=== PATIENT | female | born 1960 | race Caucasian/White ===

== ENCOUNTER 2024-07-30 19:47 | Emergency (ER) | payer BC, MEDICARE, SELFPAY ==
[2024-07-30] VITALS (12 sets, daily range): BP systolic 144–165; BP diastolic 87–92; PULSE 65–78; TEMP 36.6; O2SAT 97–99; BMI 25.8
--- NOTE | 2024-07-30 20:00 | ECG_ITS ---
[facility] Test Date: 2024-07-30 Pat Name: JASON BAEZA Department: Room: - Gender: Female Product Development: : 1960 Requested By: [id number] Order Number: [id number] Reading MD: FLORIN NORTON M.D. Measurements Intervals [place] Rate: 67 P: 47 VA: 142 QRS: 9 QRSD: 100 T: 63 QT: 400 QTc: 415 Interpretive Statements 1100 Sinus rhythm 2440 Incomplete right bundle branch block 9130 borderline ECG Compared to ECG 07/28/2020 15:13:17 No significant change Electronically Signed On 07-31-2024 7:43:38 EDT by FLORIN NORTON M.D.
--- NOTE | 2024-07-30 20:15 | ED_ITS ---
HPI - Chest Pain General Chief Complaint: Chest Pain Stated Complaint: FEELING SHAKEY Time Seen by Provider: 07/30/24 20:00 Source: patient Mode of arrival: walk-in Limitations: no limitations History of Present Illness HPI narrative: This 64-year-old female presents for evaluation of an episode of chest pain that radiated into both shoulders upon awakening earlier today. She admits that she has been doing some heavy lifting recently but did not do any heavy lifting today. She states she woke up with the discomfort and it lasted until around noon. It resolved and has not come back. She denies any shortness of breath dizziness or diaphoresis associated with it. She has not had any nausea vomiting or diarrhea. She has no lower extremity pain or swelling. No medications were taken prior to arrival. She does not smoke. She is not diabetic. She does not have a history of hypertension. She has a strong family history of heart disease but no personal history of heart disease. Related Data Home Medications ?Medication ?Instructions ?Recorded ?Confirmed [id number]-[id number] 1 tab PO Q6H PRN headache 07/30/24 07/30/24 50 mg-325 mg-40 mg tablet (Esgic) latanoprost 0.005 % eye drops 1 drp ophthalmic (eye) .qhs 07/30/24 07/30/24 levothyroxine 100 mcg tablet 100 mcg PO QAM 07/30/24 07/30/24 naproxen 500 mg tablet 500 mg PO Q12H PRN pain 07/30/24 07/30/24 Allergies Allergy/AdvReac Type Severity Reaction Status Date / Time Penicillins Allergy Hives Verified 07/30/24 19:53 Review of Systems ROS Status of ROS 10 or more systems reviewed and unremark able except as noted in history and below PFSH PFSH Social History Little interest or pleasure in doing things: not at all Feeling down, depressed, or hopeless: not at all Exam Narrative Exam Narrative: Vital signs and Nursing Notes reviewed: Patient is afebrile with a normal pulse, blood pressure is elevated 165/90, she is not hypoxic with pulse ox of 99% on room air General: Awake, alert, oriented, no acute distress, lying comfortably on the stretcher HEENT: Normocephalic atraumatic, mucous membranes are moist and pink, eyes are clear, normal conjunctiva, vision is grossly intact, posterior pharynx is normal in appearance. Neck: Supple Chest: Lungs are clear to auscultation with good air entry, there is no wheezing rhonchi or rales appreciated no accessory muscle use, patient is speaking in complete sentences-no chest wall tenderness to palpation CVS: Regular rate and rhythm S1-S2, no murmurs rubs or gallops, pulses are brisk and equal bilaterally ABD: Soft, nondistended, nontender, no rebound guarding or rigidity, bowel sounds are normal, no pulsatile masses appreciated Extremities: Moving all extremities, no lower extremity tenderness or swelling noted, negative Homans' sign, pulses are brisk and equal bilaterally Skin: Normal in appearance without rash,pallor, petechiae or purpura Neuro: No focal deficits Constitutional Vital Signs, click to edit/add: Last Vital Signs Temp 97.8 F 07/30/24 19:53 Pulse 70 07/30/24 19:53 Resp 20 07/30/24 19:53 BP 165/90 H 07/30/24 19:53 Pulse Ox 99 07/30/24 19:53 O2 Del Method Room Air 07/30/24 19:53 Course Vital Signs Vital signs: Vital Signs Temperature 97.8 F 07/30/24 19:53 Pulse Rate 70 07/30/24 19:53 Respiratory Rate 20 07/30/24 19:53 Blood Pressure 165/90 H 07/30/24 19:53 Pulse Oximetry 99 07/30/24 19:53 Oxygen Delivery Method Room Air 07/30/24 19:53 Temperature 97.8 F 07/30/24 19:53 Pulse Rate 70 07/30/24 19:53 Respiratory Rate 20 07/30/24 19:53 Blood Pressure 165/90 H 07/30/24 19:53 Pulse Oximetry 99 07/30/24 19:53 Oxygen Delivery Method Room Air 07/30/24 19:53 MDM - Chest Pain MDM Narrative Medical decision making narrative: This 64-year-old female, non-smoker who is not overweight or has a history of diabetes, heart disease or hypertension presents for evaluation of midsternal chest pain that radiated into both shoulders upon awakening this morning. She admits that she has been doing some heavy lifting at home. Her pain resolved during the day. Upon arrival she was not having any pain but was concerned about the pain she had earlier in the day. She denies any associated shortness of breath dizziness or diaphoresis. She has no nausea or vomiting. She has no abdominal pain. Her physical exam was benign. Her blood pressure was mildly elevated. EKG was a sinus rhythm with an incomplete right bundle branch block at 67 bpm. She was medicated with 324 mg baby aspirin and the cardiac workup was ordered. She has a normal white count and hemoglobin. Electrolytes are normal. Troponin and D-dimer are both normal. 1 view chest x-ray was ordered after the D-dimer came back normal and was reviewed by myself and does not show any acute findings. She has a normal mediastinum, no acute pulmonary infiltrate and normal cardiac borders. The results of her labs EKG and x-ray were discussed with her and she feels comfortable being discharged home at this time. I suggested that she follow-up closely with her family physician as he may want to order a stress test for her but at this time she is stable for discharge. Lab Data Labs: Lab Results 07/30/24 Range/Units 20:16 WBC 5.6 (4.0-11.0) 10^3/uL RBC 4.36 (4.20-5.40) 10^6/uL Hgb 13.4 (12.0-16.0) g/dL Hct 39.8 (36.0-48.0) % MCV 91.3 (81.0-99.0) fL MCH 30.7 (26.7-34.0) pg MCHC 33.7 (29.9-35.2) g/dL RDW 12.8 (11.0-15.0) % Plt Count 213 (150-450) 10^3/uL MPV 10.3 (9.5-13.5) fL Neut % (Auto) 45.1 (43.0-75.0) % Lymph % (Auto) 45.0 (20.5-60.0) % [place] % (Auto) 5.4 (1.7-12.0) % Eos % (Auto) 2.9 (0.9-7.0) % Baso % (Auto) 0.9 (0.2-2.0) % Neut # (Auto) 2.5 (1.4-6.5) 10^3/uL Lymph # (Auto) 2.5 (1.2-3.8) 10^3/uL [place] # (Auto) 0.3 (0.3-0.8) 10^3/uL Eos # (Auto) 0.2 (0.0-0.7) 10^3/uL Baso # (Auto) 0.1 (0.0-0.1) 10^3/uL Abs Immat Gran (auto) 0.04 H (0.00-0.03) 10^3/uL Imm/Tot Granulo (auto) 0.7 H (0.0-0.5) % D-Dimer 0.31 (<=0.59) mg/L FEU Sodium 141 (136-145) mmol/L Potassium 3.5 (3.5-5.1) mmol/L Chloride 106 (98-107) mmol/L Carbon Dioxide 27.6 (21.0-32.0) mmol/L Anion Gap 10.9 BUN 16.0 (7.0-18.0) mg/dL Creatinine 0.79 (0.55-1.02) mg/dL Est GFR ( Amer) >60 (>=60 mL/min/1.73m^2) Est GFR (Non-Af Amer) >60 (>=60 mL/min/1.73m^2) BUN/Creatinine Ratio 20.3 Glucose 114 H (74-106) mg/dL Calcium 8.7 (8.5-10.1) mg/dL Total Bilirubin 0.2 (0.2-1.0) mg/dL AST 17 (15-37) U/L ALT 26 (14-59) U/L Alkaline Phosphatase 126 H (46-116) U/L Troponin I High Sens 6.9 (4.0-51.3) pg/mL NT-Pro-B Natriuret Pep 53.0 (<=900.0) pg/mL Total Protein 6.6 (6.4-8.2) g/dL Albumin 3.5 (3.4-5.0) g/dL Globulin 3.1 g/dL Albumin/Globulin Ratio 1.1 ECG Data Attestation: I personally reviewed and interpreted this ECG as follows: (Sinus rhythm at 67 bpm, incomplete right bundle branch block, normal axis, normal intervals, no acute ST segment elevation or T wave inversion) Heart Score History: Moderately Suspicious ECG: Normal Age: >45-<65 years Risk Factors: No Risk Factors Troponin: <Normal Limit Total Heart Score Recommendations & Risks:: 2 Discharge Plan Discharge Chief Complaint: Chest Pain Clinical Impression: Atypical chest pain Patient Disposition: Home, Self-Care Time of Disposition Decision: 21:22 Condition: Good Prescriptions / Home Meds: No Action latanoprost 0.005 % drops 1 drp OPHTHALMIC (EYE) .qhs levothyroxine 100 mcg tablet 100 mcg PO QAM naproxen 500 mg tablet 500 mg PO Q12H PRN (Reason: pain) [id number]-[id number] [Esgic] 50-325-40 mg tablet 1 tab PO Q6H PRN (Reason: headache) Print Language: Macedonian Instructions: Chest Pain (ED), Noncardiac Chest Pain (ED) Referrals: ENEDELIA LANDIS [Primary Care Provider] - 1 week
[2024-07-30] MEDS: ASPIRIN 81 MG TAB.CHEW 324 MG PO (20:17)
--- NOTE | 2024-07-30 20:25 | PC.NURSE ---
Patient states she had chest pain earlier today that is now resolved. 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 She feels like she is anxious, that it waas caused by her having chest pain earlier then thinking about all of the things it could be causing the pain.
[2024-07-30 20:26] LABS: Basophils Absolute Auto 0.1 10^3/uL (0.0-0.1); Basophils Percent Auto 0.9 % (0.2-2.0); Eosinophils Absolute Auto 0.2 10^3/uL (0.0-0.7); Eosinophils Percent Auto 2.9 % (0.9-7.0); Hematocrit 39.8 % (36.0-48.0); Hemoglobin 13.4 g/dL (12.0-16.0); Immature Granulocytes Abs Auto 0.04 10^3/uL (0.00-0.03); Immature Granulocytes Pct Auto 0.7 % (0.0-0.5); Lymphocytes Absolute Auto 2.5 10^3/uL (1.2-3.8); Mean Corpuscular HGB Conc 33.7 g/dL (29.9-35.2); Mean Corpuscular Hemoglobin 30.7 pg (26.7-34.0); Mean Corpuscular Volume 91.3 fL (81.0-99.0); Mean Platelet Volume 10.3 fL (9.5-13.5); Monocytes Absolute Auto 0.3 10^3/uL (0.3-0.8); Monocytes Percent Auto 5.4 % (1.7-12.0); Neutrophils Absolute Auto 2.5 10^3/uL (1.4-6.5); Neutrophils Percent Auto 45.1 % (43.0-75.0); Platelet Count 213 10^3/uL (150-450); Red Blood Count 4.36 10^6/uL (4.20-5.40); Red Cell Distribution Width 12.8 % (11.0-15.0); White Blood Count 5.6 10^3/uL (4.0-11.0)
[2024-07-30 20:38] LABS: D Dimer 0.31 mg/L FEU (<=0.59)
[2024-07-30 20:44] LABS: Alanine Aminotransferase 26 U/L (14-59); Albumin Globulin Ratio 1.1; Albumin Level 3.5 g/dL (3.4-5.0); Alkaline Phosphatase 126 U/L (46-116); Anion Gap 10.9; Aspartate Amino Transferase 17 U/L (15-37); BUN Creatinine Ratio 20.3; Bilirubin Total 0.2 mg/dL (0.2-1.0); Calcium 8.7 mg/dL (8.5-10.1); Carbon Dioxide 27.6 mmol/L (21.0-32.0); Chloride 106 mmol/L (98-107); Estimated GFR (African America >60 (>=60 mL/min/1.73m^2); Estimated GFR (Non-African Ame >60 (>=60 mL/min/1.73m^2); Globulin 3.1 g/dL; Glucose 114 mg/dL (74-106); Potassium 3.5 mmol/L (3.5-5.1); Sodium 141 mmol/L (136-145); Total Protein 6.6 g/dL (6.4-8.2); Troponin I High Sensitivity 6.9 pg/mL (4.0-51.3)
== END 2024-07-30 21:29 | disposition home or self-care (01) ==
PROVIDERS: Emergency Provider Emergency Medicine; PCP Family Medicine
DX: R07.89 Other chest pain (principal)
CPT/HCPCS: 36415; 71045; 80053; 83880; 84484; 85025; 85378; 93005; 99285